=== PATIENT | male | born 1945 | race Caucasian/White ===

== ENCOUNTER 2019-02-12 09:37 | Outpatient (CLI) | payer BC, MEDICARE, SELFPAY ==
[2019-02-12 11:15] LABS: Hemoglobin A1C 7.2 % (4.5-6.2)
[2019-02-13 15:29] LABS: PSA, Screening 4.6 ng/ml (0-6.5)
== END 2019-02-12 09:57 ==
PROVIDERS: PCP Internal Medicine; Visit Provider Internal Medicine
DX: G45.9 Transient cerebral ischemic attack, unspecified (principal); R73.03 Prediabetes; Z12.5 Encounter for screening for malignant neoplasm of prostate
CPT/HCPCS: 36415; 84153; 83036

== ENCOUNTER 2020-01-23 11:57 | Outpatient (CLI) | payer BC, MEDICARE, SELFPAY ==
[2020-01-23 12:54] LABS: Abs Immature Grans 0.03 k/cumm (0.0-0.09); Absolute Basophil Count 0.05 k/cumm (0.0-0.2); Absolute Eosinophil Count 0.22 k/cumm (0.0-0.7); Absolute Lymphocyte Count 1.75 k/cumm (1.2-3.4); Absolute Monocyte Count 0.86 k/cumm (0.11-0.7); Absolute Neutrophil Count 4.18 k/cumm (1.2-6.7); Basophils % 0.7; Eosinophils % 3.1; HCT 45.3 % (40.0-50.0); Immature Grans % 0.4 %; Lymphocytes % 24.7; Mean Corp. HGB Concentration 33.1 g/dL (32.0-36.0); Mean Corpuscular Hemoglobin 29.5 pg (27.0-33.0); Mean Corpuscular Volume 89.2 fL (80-95); Mean Platelet Volume 11.2 fL (8.0-11.0); Monocytes % 12.1; Platelet Count 173 x1000/uL (130-400); RBC 5.08 m/cumm (4.50-6.00); RBC Distribution Width 13.4 % (11.8-14.1); White Blood Cell Count 7.09 k/cumm (4.4-10.8)
[2020-01-23 13:19] LABS: Hemoglobin A1C 6.6 % (3.8-5.6)
[2020-01-23 13:20] LABS: ALT 27 U/L (16-63); AST 19 U/L (15-37); Alkaline Phosphatase 118 U/L (46-116); Anion Gap 8.1 mmol/L (3-11); BUN 19 mg/dL (7-18); CO2 28.9 mmol/L (21.0-32.0); CREATININE 1.26 mg/dL (0.70-1.30); Calcium 9.2 mg/dL (8.5-10.1); Chloride 104 mmol/L (98-107); Estimated GFR 55.79 (mL/min/1.73m2); Glucose 83 mg/dL (74-106); Potassium 4.6 mmol/L (3.5-5.1); Sodium 141 mmol/L (136-145); Total Protein 7.3 g/dL (6.4-8.2)
== END 2020-01-23 12:17 ==
PROVIDERS: PCP Internal Medicine; Visit Provider Internal Medicine
DX: E11.29 Type 2 diabetes mellitus with other diabetic kidney complication (principal); R26.89 Other abnormalities of gait and mobility; R50.9 Fever, unspecified
CPT/HCPCS: 36415; 80053; 83036; 85025

== ENCOUNTER 2021-09-29 09:58 | Outpatient (CLI) | payer BC, MEDICARE, SELFPAY ==
[2021-09-29 13:04] LABS: Calculated LDL 130 mg/dL (<100); Cholesterol 203 mg/dL (<200); HDL Cholesterol 33 mg/dL (40-60); Triglyceride 203 mg/dL (<150)
[2021-09-29 13:25] LABS: Hemoglobin A1C 6.4 % (<5.7)
[2021-09-29 22:09] LABS: PSA, Screening 6.2 ng/mL (0.0-6.5)
== END 2021-09-29 09:59 | disposition home or self-care (01) ==
LOC: LOS 09:59
PROVIDERS: PCP Nurse Practitioner; Visit Provider Nurse Practitioner
DX: E11.9 Type 2 diabetes mellitus without complications (principal); Z13.6 Encounter for screening for cardiovascular disorders; Z12.5 Encounter for screening for malignant neoplasm of prostate
CPT/HCPCS: 36415; 80061; 84153; 83036

== ENCOUNTER 2022-01-27 13:36 | Outpatient (CLI) | payer BC, MEDICARE, SELFPAY ==
--- NOTE | 2022-01-27 06:15 | DI.RAD_ITS ---
Exam(s) XR SHOULDER LT COMPLETE 2+V EXAM: XR SHOULDER LT COMPLETE 2+V CLINICAL HISTORY: shoulder pain,M25.512. TECHNIQUE: 2D digital imaging was performed. COMPARISON: No exams were available for comparison FINDINGS: Five views There is no evidence of fracture or dislocation or abnormal soft tissue calcifications. There are mo derate degenerative changes in the glenohumeral joint and mild degenerative changes AC joint. Subacr omial space height is within normal limits. No ominous osseous lesions. Ipsilateral clavicle appear s. Sternotomy wires noted. IMPRESSION: DATA REPOSITORY: RADIATION DOSE DELIVERED:
== END 2022-01-27 13:56 ==
PROVIDERS: PCP Nurse Practitioner; Visit Provider Nurse Practitioner
DX: M25.512 Pain in left shoulder (principal); M19.012 Primary osteoarthritis, left shoulder
CPT/HCPCS: 73030

== ENCOUNTER 2022-04-14 12:22 | Outpatient (CLI) | payer BC, MEDICARE, SELFPAY ==
--- NOTE | 2022-04-14 11:15 | DI.RAD_ITS ---
Exam(s) XR CERVICAL SPINE COMP 4-5V EXAM: XR CERVICAL SPINE COMP 4-5V CLINICAL HISTORY: pain TECHNIQUE: COMPARISON: CR CERVICAL SP. LIMITED (TRAUMA) from 03/17/2018 FINDINGS: Seven views were obtained. Previously noted cervical laminectomy and fixation is is again seen exten ding from C3-C5. Hardware appears intact as visualized. No change in alignment. Vertebral body fus ions of C3-4 and C6-7 again noted. No change in appearance comparison with prior examination of March 2018. IMPRESSION: RADIATION DOSE DELIVERED: Total DLP
== END 2022-04-14 12:23 | disposition home or self-care (01) ==
LOC: DIORS 12:23
PROVIDERS: PCP Nurse Practitioner; Referring Provider Nurse Practitioner; Visit Provider Physician Assistant Surgical
DX: M25.512 Pain in left shoulder (principal); M54.2 Cervicalgia; Z98.1 Arthrodesis status
CPT/HCPCS: 72050

== ENCOUNTER → 2022-06-24 00:36 | Outpatient (CLI) | payer BC, MEDICARE, SELFPAY ==
--- NOTE | 2022-06-24 06:36 | DI.MRI_ITS ---
Exam(s) MR CERVICAL SPINE WO EXAM: MR CERVICAL SPINE WO CLINICAL HISTORY: cervical radiculopathy,no improvement with pt,m54.12 TECHNIQUE: Multiplanar multisequence MRI of the cervical spine was performed without intravenous con trast. COMPARISON: MR MRI - CERVICAL SPINE WO CONT from 12/07/2017 CR XR CERVICAL SPINE COMP 4-5V from 04/14/2022 FINDINGS: There has been decompression surgery with removal of posterior osseous elements and placement of post erior fusion rods secured by intra pedicular screws at C3, C4, and C5 levels, as evident on the recen t plain films. There is mature fusion of the vertebral bodies of C3 and C4 and there is also now fusion across C6-7 levels. CERVICOMEDULLARY JUNCTION: Intact with no evidence of cerebellar tonsillar ectopia. No obvious new a bnormality of the odontoid process. No evidence of Chiari 1 malformation. CERVICAL SPINAL CORD: Cervical cord exhibits normal caliber. However, there is some abnormal myeliti s signal in the cord evident at C3-4 level which is best seen on the sagittal T2 sequence. There is no focal cord swelling nor focal cord atrophy at this level nor elsewhere in the cervical spine. OSSEOUS:There are no cervical fractures evident. No significant osseous lesions in the cervical vert ebrae. INDIVIDUAL LEVELS: C2-3: Advanced disc space narrowing noted. Posteriorly the central canal dimensions are within marbella l limits at this level without evidence of a disc herniation. There is some foraminal stenosis on th e left side at this level mostly related to asymmetric degenerative change in the left facet joint at this level. Also Luschka joint osteophytes on the left side at this level. The right facet joint e xhibits minimal degenerative change and exiting neural foramen exhibits lower normal diameters. C3-4: Essentially no disc space at this fused level. Central canal dimensions are within normal limi ts. Evaluation of the exiting neural foramen is somewhat difficult due to the hardware artifact at t his level. C4-5: Decreased disc height and signal with what appears to be developing fusion across this level.No evidence of significant disc herniation at this level and no central canal stenosis. There is less canal stenosis at this level on the present study (when compared to the MRI scan of November 2017). T he present dimensions of the exiting neural foramina are also difficult to assess at this level due t o artifact from the intra pedicular screws. C5-6: This level exhibits relatively preserved disc height and signal. No disc herniation nor centra l canal stenosis at this level. There is an element of foraminal stenosis on the right side at this level mostly related to facet arthropathy. Also some foraminal stenosis on the left side at this lev el but less than is evident on the right side. C6-7: Anterior fusion noted at this level. No disc herniation. Central canal dimensions are lower n ormal. Somewhat improved when compared to 2018. Some foraminal stenosis evident at this level, more so on the left than the right. Some facet arthropathy evident. C7-T1: Normal disc height at this level. There is small posterolateral left disc protrusion at this level seen only in the sagittal images/less evident on the axial images. Central canal dimensions ar e lower normal at this level. There is narrowing of the exiting right neural foramen at this level, mostly related to degenerative changes in the facet joint. Lesser amount of foraminal narrowing is n oted on the left side at this level. Incidentally noted is broad annular bulging at the T2-3 and T3-4 level seen in the peripheral aspect field of view here. IMPRESSION: 1. Evidence of tri level fusion hardware at C3-C5 levels. No listhesis. No signal abnormality to abbott ggest discitis nor osteomyelitis nor epidural abscess nor paraspinal abscess. 2. Improved central canal dimensions when compared to the 2018 study. However, there is an element of foraminal stenosis at some levels but this is somewhat difficult to evaluate accurately given the artifact from the intra pedicular screws. 3. On the present study there is some increased signal abnormality in the cervical spinal cord at C3- 4 level (there is no significant central canal stenosis at this level at this time), not associated w ith focal cord swelling nor focal cord atrophy. This myelitis signal is most probably subsequent to the previously present central spinal canal stenosis evident at this level and C4-5 level on the 2018 MRI study. Other findings as above. DATA REPOSITORY:
== END ==
PROVIDERS: PCP Nurse Practitioner; Visit Provider Nurse Practitioner
DX: M54.12 Radiculopathy, cervical region (principal); M48.02 Spinal stenosis, cervical region
CPT/HCPCS: 72141

== ENCOUNTER 2022-10-12 13:44 | Outpatient (REF) | payer BC, MEDICARE, SELFPAY ==
[2022-10-12 17:43] LABS: COMMENT (LAB VIEW ONLY) 224.42 mg/dL; Microalb ug/mg Crea 25.7 ug/mg Cr
== END 2022-10-12 13:45 | disposition home or self-care (01) ==
LOC: NCHCN 13:44
PROVIDERS: PCP Nurse Practitioner Family; Visit Provider Nurse Practitioner Family
DX: E11.9 Type 2 diabetes mellitus without complications (principal)
CPT/HCPCS: 82043; 82570

== ENCOUNTER 2024-04-18 09:45 | Outpatient (CLI) | payer BC, MEDICARE, SELFPAY ==
[2024-04-18 09:52] LABS: HCT 44.9 % (40.0-50.0); HGB 15.2 g/dL (13.5-17.5); MCH 30.2 pg (27.0-33.0); MCHC 33.9 % (32.0-36.0); MCV 89 fL (80-95); MPV 11.3 fL (8.0-11.0); Platelet Count 156 10^3/uL (130-400); RBC 5.04 10^6/uL (4.36-5.78); RDW 13.1 % (11.8-14.1); RDW-SD 42.4 fL; WBC 6.74 10^3/uL (4.4-10.8)
[2024-04-18 10:16] LABS: BUN 20 mg/dL (7-18); CREATININE 1.4 mg/dL (0.70-1.30); Calculated LDL 117 mg/dL (<100); Chloride 105 mmol/L (98-107); Cholesterol 192 mg/dL (<200); Estimated GFR 51.13 (mL/min/1.73m2); Glucose 131 mg/dL (74-106); HDL Cholesterol 38 mg/dL (40-60); Potassium 4.3 mmol/L (3.5-5.1); Sodium 140 mmol/L (136-145); TSH (W/Ref FT4) 2.55 uIU/mL (0.36-3.74); Triglyceride 185 mg/dL (<150)
[2024-04-18 11:13] LABS: Hemoglobin A1C 7.2 % (<5.7)
[2024-04-18 18:06] LABS: PSA, Screening 6.4 ng/mL (<=6.5)
== END 2024-04-18 09:46 | disposition home or self-care (01) ==
LOC: LBO 09:45
PROVIDERS: PCP Nurse Practitioner Family; Visit Provider Nurse Practitioner Family
DX: I10 Essential (primary) hypertension (principal); E11.9 Type 2 diabetes mellitus without complications; R42 Dizziness and giddiness; R26.89 Other abnormalities of gait and mobility; Z00.00 Encounter for general adult medical examination without abnormal findings
CPT/HCPCS: 36415; 80048; 80061; 84153; 85027; 83036; 84443

== ENCOUNTER 2024-10-12 11:10 | Outpatient (CLI) | payer BC, MEDICARE, SELFPAY ==
[2024-10-12 10:08] LABS: Hemoglobin A1C 7.6 % (<5.7)
[2024-10-12 10:53] LABS: Anion Gap 7.2 mmol/L (3-11); BUN 17 mg/dL (7-18); CO2 26.8 mmol/L (21.0-32.0); CREATININE 1.3 mg/dL (0.70-1.30); Chloride 106 mmol/L (98-107); Estimated GFR 55.53 (mL/min/1.73m2); Glucose 143 mg/dL (74-106); Potassium 4.4 mmol/L (3.5-5.1); Sodium 140 mmol/L (136-145)
== END 2024-10-12 11:11 | disposition home or self-care (01) ==
PROVIDERS: PCP Nurse Practitioner Family; Visit Provider Nurse Practitioner Family
DX: E11.9 Type 2 diabetes mellitus without complications (principal); I10 Essential (primary) hypertension; R42 Dizziness and giddiness
CPT/HCPCS: 36415; 80048; 83036